=== PATIENT | female | born 1970 | race Caucasian/White ===

== ENCOUNTER 2023-10-05 08:52 | Outpatient (CLI) | payer OTHER, SELFPAY ==
--- NOTE | ~2023-10-05 | MR_ITS ---
MRI of the right shoulder Technique: Axial proton-density fat-sat images, coronal proton density fat-sat and T2 fat-sat images, and sagittal T1-weighted and T2 fat-sat images were acquired. Clinical History: Pain Findings: There is minimal AC joint degenerative change. Coracoclavicular, coracoacromial, and coraco humeral ligaments are intact. Supraspinatus and infraspinatus tendons demonstrate mild to moderate tendinosis, but no partial or fu ll-thickness tear. Subscapularis tendon is intact. Tendon of the long head of the biceps is intact. No labral tear identified. Inferior glenohumeral ligament is intact. No degenerative change or effusion of the glenohumeral join t. There is fluid distention of the subacromial/subdeltoid bursa with mild debris. No muscle atrophy or edema. Impression: Subacromial/subdeltoid bursitis. Mild to moderate rotator cuff tendinosis without partial or full-thickness tear. Reviewed, dictated and finalized at location . ING MACHINE OPERATOR Impression: Subacromial/subdeltoid bursitis. Mild to moderate rotator cuff tendinosis without partial or full-thickness tear .
== END 2023-10-05 08:53 ==
LOC: MICIMG 08:53
PROVIDERS: PCP Family Medicine; Visit Provider Orthopaedic Surgery
DX: M25.511 Pain in right shoulder (principal); M75.51 Bursitis of right shoulder
CPT/HCPCS: 73221

== ENCOUNTER 2024-11-21 16:19 | Outpatient (CLI) | payer OTHER, SELFPAY ==
--- NOTE | ~2024-11-21 | XR_ITS ---
XR chest 2V Ordering provider: Rodriguez Gilliland, History: 53 years Female with . Pleurisy . Comparison: November 22, 2008 FINDINGS: MEDIASTINUM: The cardiac silhouette is not enlarged. LUNGS: No effusions or pneumothorax. Bilateral interstitial thickening which may indicate pneumonitis . Underlying fibrotic changes noted. Apical pleural thickening is seen in both apices. Underlying emp hysematous changes are also noted. OTHER: No free air under the diaphragm. IMPRESSION: Bilateral interstitial thickening suggestive of pneumonitis. Clinical correlation advised. Reviewed, dictated and finalized at location A. ESPONDENCE CLERK IMPRESSION: Bilateral interstitial thickening suggestive of pneumonitis. Clinical correlati on advised.
== END 2024-11-21 16:20 | disposition home or self-care (01) ==
PROVIDERS: PCP Internal Medicine; Visit Provider Internal Medicine
DX: R91.8 Other nonspecific abnormal finding of lung field (principal)
CPT/HCPCS: 71046